=== PATIENT | male | born 1970 | race African-American/Black ===

== ENCOUNTER 2022-01-26 04:00 | Emergency (ER) | payer MEDICAID ==
[~2022-01-26] VITALS: Ht 177.8 cm; Wt 141.0 kg
[2022-01-26] MEDS ORDERED: ONDANSETRON HCL 4MG/2ML INJ IV ONE (04:30)
[2022-01-26] MEDS ORDERED: MORPHINE SULFATE 4 MG/ML CPJ (NOT FOR IM USE) IV ONE ×2 (04:30→06:30)
[2022-01-26 05:44] LABS: BASOPHILS % 0.5 % (0.0-2.0); EOSINOPHILS % 2.3 % (0.0-5.0); HEMATOCRIT. 42.6 % (42.0-52.0); HEMOGLOBIN. 14.4 g/dL (14.0-18.0); LYMPHOCYTES % 17.1 % (20.0-50.0); MEAN CORPUSCULAR HEMOGLOBIN 29.5 pg (28.0-32.0); MEAN CORPUSCULAR VOLUME 87.3 fL (80.0-94.0); MEAN PLATELET VOLUME 8.6 fl (7.4-10.4); MONOCYTES % 10.5 % (2.0-8.0); NEUTROPHILS % 69.6 % (40.0-76.0); PLATELET 178 x1000/uL (130-400); RED BLOOD CELL COUNT 4.88 mill/uL (4.7-6.1); RED CELL DISTRIBUTION WIDTH 14.7 % (11.6-14.6)
[2022-01-26 05:50] LABS: CHLORIDE 104 mEq/L (98-107)
[2022-01-26] MEDS ORDERED: GUAIFENESIN 200MG/10ML SUGAR FREE UDC PO PRN ×2 (07:15→09:30)
[2022-01-26] MEDS ORDERED: DOCUSATE SODIUM 100MG CAPSULE PO PRN ×2 (07:15→09:30)
[2022-01-26] MEDS ORDERED: PIPERACILLIN/TAZ 3.375G PREMIX 50 ML IV SCH (07:15)
[2022-01-26] MEDS ORDERED: ONDANSETRON HCL 4MG/2ML INJ IV PRN ×2 (07:15→09:30)
[2022-01-26] MEDS ORDERED: CLONIDINE 0.1MG TABLET PO PRN ×2 (07:15→09:30)
[2022-01-26] MEDS ORDERED: ACETAMINOPHEN 325MG TABLET PO PRN ×4 (07:15→09:30)
[2022-01-26] MEDS ORDERED: ENOXAPARIN 40MG/0.4ML SYR SUBCUT SCH ×2 (07:15→09:30)
[2022-01-26] MEDS ORDERED: ZOLPIDEM TARTRATE 5MG TABLET PO PRN ×2 (07:15→09:30)
[2022-01-26] MEDS ORDERED: IPRATROPIUM/ALBUTEROL 0.5-3(2.5)MG/3ML NEB NEB PRN ×2 (07:15→09:30)
[2022-01-26] MEDS ORDERED: KETOROLAC 15MG/ML VIAL IV PRN ×2 (07:15→09:30)
[2022-01-26] MEDS ORDERED: NITROGLYCERIN 0.4MG TABLET SL SL PRN ×2 (07:15→09:30)
[2022-01-26] MEDS ORDERED: MAGNESIUM/ALUMINUM HYDROXIDE/SIMETHICONE 30ML UDC PO PRN ×2 (07:15→09:30)
[2022-01-26] MEDS ORDERED: DEXTROSE 50% WATER 50ML SYRINGE IV PRN (07:30)
[2022-01-26] MEDS ORDERED: INSULIN LISPRO 100 UNITS/ML SUBCUT SCH (08:20)
[2022-01-26] MEDS ORDERED: ACETAMINOPHEN 325MG TABLET PO NR (08:45)
[2022-01-26] MEDS ORDERED: FAMOTIDINE 20MG TABLET PO SCH ×2 (09:00→09:30)
[2022-01-26] MEDS ORDERED: BLOOD SUGAR DIAGNOSTIC STRIP TEST SCH (09:00)
[2022-01-26] MEDS ORDERED: METOPROLOL TARTRATE 25MG TABLET PO SCH ×2 (09:00→21:00)
[2022-01-26] MEDS ORDERED: TRAMADOL 50MG TABLET PO PRN (09:30)
[2022-01-26 09:46] LABS: ETHANOL BLOOD < 10 mg/dL
[2022-01-26 10:00] VITALS: BP 164/90
[2022-01-26 10:29] LABS: VITAMIN B12 SERUM 671 pg/mL (211-911)
== END 2022-01-26 11:00 | disposition left against medical advice (07) ==
LOC: ER 04:00 → CANBEDREQ 20:27
DX: S52.502A Unspecified fracture of the lower end of left radius, initial encounter for closed fracture (principal); W18.2XXA Fall in (into) shower or empty bathtub, initial encounter; Y93.E1 Activity, personal bathing and showering; Y92.89 Other specified places as the place of occurrence of the external cause; Y99.8 Other external cause status
CPT/HCPCS: 36415; 73110; 73130; 80048; 80320; 82607; 83036; 84443; 85025; 96374; 96375; 96376; 99285; J1650; J2270; J2405; Z7610; A4565; G0480